=== PATIENT | male | born 1985 | race Two or more races ===

== ENCOUNTER 2019-03-12 10:08 | Emergency (ER) | payer BC ==
--- NOTE | 2019-03-12 10:41 | Emergency Department Record ---
History of Present Illness - General Chief Complaint: Abdominal Pain Stated Complaint: CONSTIPATED Time Seen by Provider: 03/12/19 10:17 Source: Patient, Family (girl friend) Mode of Arrival: Ambulatory Limitations: No limitations - History of Present Illness Initial Comments: Pt to the ED with complaint of "constipation". No BM for a week. Prior to last BM pt had firm difficult BMs. No hx of constipation. Mild abdominal discomfort and nausea without vomiting. No hx hernia or surgery. Has used over the counter meds for constipation orally without relief. No suppository or enemas. No change in diet or travel. Drinks 1-2 bottles of water a day at work and is active. Onset/Timin -: Week(s) Radiation: None Improves With: Nothing Worsens With: Nothing - Related Data Home Medications Medication Instructions Recorded Confirmed Last Taken No Home Med [NO HOME MEDS] 03/12/19 03/12/19 Unknown Allergies Allergy/AdvReac Type Severity Reaction Status Date / Time No Known Drug Allergies Allergy Verified 03/12/19 10:19 Travel Screening - Travel/Exposure Within Last 30 Days Have you traveled within the last 30 days?: No - Travel/Exposure Within Last Year Have you traveled outside the [place] in the last year?: No - Additonal Travel Details Have you been exposed to anyone with a communicable illness?: No - Travel Symptoms Symptom Screening: None Review of Systems Constitutional: Denies: Chills, Fever Eyes: Denies: Eye discharge, Photophobia ENT: Denies: Congestion Respiratory: Denies: Cough Cardiovascular: Denies: Chest pain, Other Endocrine: Denies: Fatigue, Polyuria Gastrointestinal: Reports: Constipation, Nausea. Denies: Abdominal pain, Diarrhea, Hematemesis, Hematochezia, Melena, Vomiting Genitourinary: Denies: Dysuria Musculoskeletal: Denies: Back pain Skin: Denies: Bruising, Rash Neurological: Denies: Confusion, Headache Psychiatric: Denies: Anxiety Hematological/Lymphatic: Denies: Anemia Past Medical History - SOCIAL HISTORY Smoking Status: Never smoker Alcohol Use: None Drug Use: Heavy Drug Use Detail:: Marijuana - RESPIRATORY Hx Respiratory Disorders: No - CARDIOVASCULAR Hx Cardio Disorders: No - NEURO Hx Neuro Disorders: No - GI Hx GI Disorders: No - Hx Genitourinary Disorders: No - ENDOCRINE Hx Endocrine Disorders: No - MUSCULOSKELETAL Hx Musculoskeletal Disorders: No - PSYCH Hx Psych Problems: No - HEMATOLOGY/ONCOLOGY Hx Hematology/Oncology Disorders: No Family Medical History Any Significant Family History?: No Physical Exam - General General Appearance: Alert, Oriented x3, Cooperative, No acute distress - Head Head exam: Atraumatic - Eye Eye exam: PERRL - ENT ENT exam: Mucous membranes moist Ear exam: Normal external inspection Nasal Exam: Normal inspection - Neck Neck exam: Normal inspection, Full ROM - Respiratory Respiratory exam: Normal lung sounds bilaterally. negative: Respiratory distress - Cardiovascular Cardiovascular Exam: Regular rate, Normal rhythm. negative: Tachycardia - GI/Abdominal GI/Abdominal exam: Soft, Normal bowel sounds. negative: Distended, Guarding, Rebound, Tenderness - Rectal Rectal exam: Heme (-) stool, Normal inspection, Normal rectal tone (no stool in vault). negative: Heme (+) stool, Hemorrhoids - Extremities Extremities exam: Normal inspection - Back Back exam: Reports: Normal inspection - Neurological Neurological exam: Alert, Normal gait, Oriented X3 - Psychiatric Psychiatric exam: Normal affect, Normal mood - Skin Skin exam: Dry, Intact, Normal color, Warm Course Vital Signs 03/12/19 10:11 Temperature 98.5 F Pulse Rate 52 L Respiratory 16 Rate Blood Pressure 126/75 Pulse Ox 99 - Reevaluation(s) Reevaluation #1: 03/12/19 10:[address] exam[address] Rectal without impaction or occult blood. No stool in vault. Girlfriend at bedside for exam, pt tolerated well. To Xray. Reevaluation #2: 03/12/19 11:05 Xray neg per radiologist. Long talk with patient. Will give mag citrate for home. He describes "thin long stool". We discussed that this is new and the thin caliber stool is concerning. We talked about colon cancer symptoms and that he should have a colonoscopy. Referral to GI. Pt has no weight loss or family hx of colon cancer. He is aware I am not telling him he has cancer, just that we feel he need to be evaluated by GI and possible scope. He understands and agrees. Medical Decision Making - Management Options MDM Management: Additional Work-up Planned (e.g. ADM/Transfer/OP Study) - Data Complexity MDM Data: X-Ray Ordered and/or Reviewed Disposition Disposition: Discharge Clinical Impression: Constipation Qualifiers: Constipation type: unspecified constipation type Qualified Code(s): K59.00 - Constipation, unspecified Disposition: Home, Self-Care Condition: (2) Stable Instructions: Constipation (ED) Additional Instructions: Mag Citrate at home with water after. GI referral. Call for an appointment. Family doctor through [facility] Return to the ED at anytime as needed. Forms: Patient Portal Access Time of Disposition: 11:09 Quality - Quality Measures Quality Measures: N/A - Blood Pressure Screening Does Patient Have Any of the Following: No Blood Pressure Classification: Pre-Hypertensive BP Reading Systolic Measurement: 126 Diastolic Measurement: 75 Screening for High Blood Pressure: < Normal BP, F/U Not Required > [[id number]]
--- NOTE | 2019-03-12 11:01 | RADIOLOGY REPORT ---
EXAMINATION: Abdomen Single View EXAM DATE: 03/12/2019 10:53 AM TECHNIQUE: Single view INDICATION: constipation COMPARISON: None ENCOUNTER: Not applicable FINDINGS: Bowel: Normal. Abnormal Calcifications: None. Bones: Unremarkable. Other Findings: None. IMPRESSION: Normal exam. Dictated by: Markel Gonzalez MD on 03/12/2019 10:59 AM. .
[2019-03-12] MEDS ORDERED: MAGNESIUM CITRATE 296 ML BTL PO ONE ×2 (11:05→11:10)
== END 2019-03-12 11:17 | disposition home or self-care (01) ==
LOC: ER 10:08
DX: K59.00 Constipation, unspecified (principal); R10.9 Unspecified abdominal pain; R11.0 Nausea
CPT/HCPCS: 74018; 99283